=== PATIENT | female | born 1995 | race African-American/Black ===

== ENCOUNTER 2020-09-10 23:24 | Inpatient (IN) | payer OTHER ==
[~2020-09-10] VITALS: Ht 170.2 cm; Wt 68.0 kg
--- NOTE | ~2020-09-10 | EEG ---
[facility] [place] [address] ELECTROENCEPHALOGRAM Name: DARIN CHEN Room #: 239-P [facility] IN M.R.#: [id number] Admission: 09/11/20 Attend Phys: Leticia Queen MD Discharge: 09/11/20 Date of : 89 Report #: [id number] THIS REPORT FOR: //name// DOC #: [id number] Wilver Talbot MD DATE OF SERVICE: 09/11/2020 The patient's EEG was done by placing the electrode by standard 10-20 system of electrode placement. Both referential and sequential montages were used for recording. Background activity in this patient's EEG is about 8-9 Hz and 20 microvolt. The patient went to sleep that is associated with bilateral slowing and vertex sharp waves. The patient's EEG continued to be somewhat slow and it was intermixed slowing. Throughout the record, no active epileptiform activity was noticed. IMPRESSION: This patient's EEG demonstrates some intermixed slowing that is a nonspecific finding which can occur with drowsiness, effect of psychotropic medication, encephalopathy, etc. Clinical correlation is recommended. Thank you very much for this referral. Wilver Talbot MD PK/NELSY By: [id number] Wilver Talbot MD /nt
[2020-09-10 23:25] VITALS: BP 105/68
[2020-09-11] VITALS (24 sets, daily range): BP systolic 80–126; BP diastolic 34–79
[2020-09-11 00:08] LABS: ANION GAP 17 mmol/L (7-16); BUN 9 mg/dL (7-18); CALCIUM 8.6 mg/dL (8.5-10.1); CHLORIDE 106 mmol/L (98-107); CO2 20 mmol/L (21-32); CREATININE 1.2 mg/dL (0.6-1.0); GLUCOSE 97 mg/dL (74-106); POTASSIUM 3.5 mmol/L (3.5-5.1); SODIUM 143 mmol/L (136-145)
[2020-09-11 00:12] LABS: ABSOLUTE NEUTROPHILS 6.4 thou/uL (1.4-8.2); BASOPHILS 0.5 % (0.0-2.0); EOSINOPHILS 1.3 % (0.0-3.0); HEMATOCRIT 44.8 % (37.0-47.0); HEMOGLOBIN 14.6 gm/dL (12.0-15.0); LYMPHOCYTES 37.9 % (24.0-44.0); MCH 30.7 pg (26.0-34.0); MCHC 32.5 g/dL (28.0-37.0); MCV 94.5 fL (80.0-100.0); MONOCYTES 8.3 % (1.0-8.0); PLATELET COUNT 259 thou/uL (150-400); RBC 4.74 mil/uL (4.20-5.00); RDW 13.6 % (10.5-14.5); WBC 12.3 thou/uL (4.0-11.0)
[2020-09-11 00:14] LABS: ALBUMIN 3.8 g/dL (3.4-5.0); LIPASE 63 U/L (73-393); SALICYLATE < 2.0 mg/dL (2.8-20.0); SGOT 11 U/L (15-37); SGPT 19 U/L (14-59); TOTAL BILIRUBIN 0.1 mg/dL (0.2-1.0); TOTAL PROTEIN 7.6 g/dL (6.4-8.2)
[2020-09-11 03:07] LABS: URINE BILIRUBIN NEGATIVE (Negative); URINE BLOOD TRACE (Negative); URINE CLARITY CLEAR; URINE COLOR YELLOW; URINE GLUCOSE-RANDOM* NEGATIVE (Negative); URINE KETONES NEGATIVE (Negative); URINE LEUKOCYTES-REFLEX NEGATIVE (Negative); URINE NITRITE-REFLEX NEGATIVE (Negative); URINE PROTEIN (DIPSTICK) NEGATIVE (Negative); URINE SPECIFIC GRAVITY 1.025 (1.005-1.035); URINE UROBILINOGEN 0.2 E.U./dl (0.2-1.0)
[2020-09-11 03:16] LABS: AMP/METHAMP Negative (Negative); BARBITURATES Negative (Negative); BENZODIAZEPINES Negative (Negative); COCAINE Negative (Negative); METHADONE Negative (Negative); OPIATES Negative (Negative); PCP Negative (Negative)
== END 2020-09-11 11:45 | disposition left against medical advice (07) | DRG 315 ==
LOC: ER 23:24 → ICU 09-11 06:31 → EROBS 09-11 06:31 → ICU 09-11 06:32
PROVIDERS: Emergency Medicine; ADMIT Hospitalist; ATTEND Hospitalist
DX: I95.9 Hypotension, unspecified (principal); N17.9 Acute kidney failure, unspecified; F19.90 Other psychoactive substance use, unspecified, uncomplicated; F10.129 Alcohol abuse with intoxication, unspecified; F44.9 Dissociative and conversion disorder, unspecified; Z53.29 Procedure and treatment not carried out because of patient's decision for other reasons; F32.9 Major depressive disorder, single episode, unspecified; F41.9 Anxiety disorder, unspecified; Z79.899 Other long term (current) drug therapy
CPT/HCPCS: 10078